=== PATIENT | female | born 1990 | race African-American/Black ===

== ENCOUNTER 2021-04-28 05:58 | Inpatient (IN) ==
[2021-04-28] MEDS ORDERED: MEPERIDINE 50 MG/1 ML VIAL IV PRN (06:06)
[2021-04-28] MEDS ORDERED: ONDANSETRON 4 MG/2 ML VIAL IV PRN (06:06)
[2021-04-28] MEDS ORDERED: BUTORPHANOL 2 MG/ML VIAL IV PRN (06:06)
[2021-04-28] MEDS ORDERED: AMPICILLIN INJ 2,000 MG in SODIUM CHLORIDE 0.9% 100 ML IV PRN (06:08)
[2021-04-28] MEDS ORDERED: LACTATED RINGERS 1,000 ML IV SCH (06:30)
[2021-04-28 06:59] LABS: Basophils # 0.1 10*3/uL (0.0-0.2); Basophils % 0.8 % (0.0-0.8); Eosinophils # 0.1 10*3/uL (0.0-0.87); Eosinophils % 0.9 % (0.00-10.9); Hematocrit 34.6 VOL% (35.7-47.0); Hemoglobin 10.9 GM/DL (12.0-16.0); Lymphocytes # 4.1 10*3/uL (1.4-4.0); Lymphocytes % 41.5 % (21.3-54.2); Mean Corpuscular HGB Conc 31.5 GM/DL (32-36); Mean Corpuscular Volume 83.2 FL (87-102); Mean Platelet Volume 10.3 FL (9.6-12.0); Monocytes % 8.5 % (1.7-12.7); Neutrophils % 46.3 % (38.7-73.9); Platelet Count 474 T/CUMM (130-400); Red Blood Count 4.16 MC/CUMM (3.8-5.5); Red Cell Distribution Width 16.7 % (9.3-17.3); White Blood Count 9.8 T/CUMM (4-12)
[2021-04-28 07:07] LABS: Bilirubin,Urine Negative (Negative); Blood, Urine Moderate mg/dL (Negative); Glucose,Urine (UA) Negative (Negative); Ketones,Urine Negative (Negative); Mucus,Urine Occasional /LPF (Occasional); Nitrite,Urine Negative (Negative); Protein,Urine 30 MG/DL; RBC,Urine 18 /HPF (0-4); Squamous Epithelial Cell,Urine Few /HPF (0-10); Urine Appearance CLOUDY (Clear); Urine Color Yellow (Yellow); Urine Specific Gravity 1.008 (1.001-1.035); Urine Urobilinogen < 2.0 EU/DL (<2.0)
[2021-04-28 07:23] LABS: Albumin 2.2 G/DL (3.4-5.0); Bilirubin,Total 0.5 MG/DL (0.20-1.00); Calcium 10.2 MG/DL (8.5-10.1); Osmolality,Calculated 265.2 MOS/KG (273-304); Total Protein 8.3 G/DL (6.4-8.2)
[2021-04-28] MEDS: OXYTOCIN/LR 20 UNIT/1,000 ML BAG IV SCH ×2 (07:28→17:45)
[2021-04-28] MEDS: AMPICILLIN INJ 1,000 MG in SODIUM CHLORIDE 0.9% 100 ML IV SCH ×2 (11:32→14:33)
[2021-04-28] MEDS ORDERED: TRANEXAMIC ACID 1,000 MG/10 ML VIAL ONE (14:36)
[2021-04-28] MEDS ORDERED: miSOPROStoL 200 MCG TABLET ONE (14:36)
[2021-04-28] MEDS ORDERED: METHYLERGONOVINE 0.2 MG/1 ML AMP ONE (14:37)
[2021-04-28] MEDS ORDERED: CARBOPROST TROMETHAMINE 250 MCG/ML AMP IM ONE (14:37)
[2021-04-28] MEDS ORDERED: SODIUM CHLORIDE 0.9% 0 ML IV ONE (14:37)
[2021-04-28] MEDS ORDERED: LIDOCAINE 1% 50 ML VIAL ONE (15:00)
[2021-04-28 16:06] LABS: Cord Venous Blood PCO2 41.3 MMHG; Cord Venous Blood PO2 23.3
[2021-04-28] MEDS ORDERED: ACETAMINOPHEN/CODEINE 300-30 MG TABLET PO ONE (16:18)
[2021-04-28] MEDS ORDERED: BENZOCAINE 20%/MENTHOL 0.5% SPRAY 56 GM CAN TOP PRN (18:17)
[2021-04-28] MEDS ORDERED: oxyCODONE/ACETAMINOPHEN 5-325 MG TABLET PO PRN (18:32)
[2021-04-28] MEDS: DOCUSATE SODIUM 100 MG CAPSULE PO PRN (19:54)
[2021-04-28] MEDS: IBUPROFEN 800 MG TABLET PO PRN (19:55)
[2021-04-28] MEDS ORDERED: HYDROCORTISONE 2.5% RECTAL CREAM 30 GM TUBE TOP PRN (21:25)
[2021-04-28] MEDS ORDERED: WITCH HAZEL PADS 100/JAR TOP PRN (21:26)
[2021-04-29] MEDS: IBUPROFEN 800 MG TABLET PO PRN ×2 (03:36→15:17)
[2021-04-29 05:46] LABS: Basophils # 0.1 10*3/uL (0.0-0.2); Basophils % 0.5 % (0.0-0.8); Eosinophils # 0.1 10*3/uL (0.0-0.87); Eosinophils % 0.6 % (0.00-10.9); Hematocrit 30.1 VOL% (35.7-47.0); Hemoglobin 9.7 GM/DL (12.0-16.0); Immature Granulocytes % 1.4 %; Immature Granulocytes Absolute 0.21 #; Lymphocytes # 3.9 10*3/uL (1.4-4.0); Lymphocytes % 25.6 % (21.3-54.2); Mean Corpuscular HGB Conc 32.2 GM/DL (32-36); Mean Corpuscular Volume 83.4 FL (87-102); Mean Platelet Volume 10.4 FL (9.6-12.0); Monocytes % 7.6 % (1.7-12.7); Neutrophils % 64.3 % (38.7-73.9); Platelet Count 444 T/CUMM (130-400); Red Blood Count 3.61 MC/CUMM (3.8-5.5); Red Cell Distribution Width 16.9 % (9.3-17.3); White Blood Count 15.3 T/CUMM (4-12)
[2021-04-29] MEDS ORDERED: MULTIVITAMIN (PRENATAL) TABLET PO SCH (09:00)
[2021-04-29] MEDS: DOCUSATE SODIUM 100 MG CAPSULE PO PRN (21:22)
[2021-04-30 11:10] VITALS: BP 115/68
== END 2021-04-30 10:30 | disposition home or self-care (01) | DRG 560 ==
LOC: N.LD 05:58 → N.OB 17:54
PROVIDERS: ADMIT Obstetrics & Gynecology; ATTEND Obstetrics & Gynecology